=== PATIENT | female | born 1995 | race Caucasian/White ===

== ENCOUNTER 2017-11-06 22:20 | Emergency (ER) | payer OTHER ==
[~2017-11-06] VITALS: Ht 170.2 cm; Wt 76.7 kg
[~2017-11-06 22:20] MED LIST: ACET325 PO; Ayr Saline Na14.1 GM; SLOW FE142 MG; Verotin-Gr Cap1 EACH PO
[2017-11-06 23:32] LABS: Influenza A Negative (NEGATIVE); Influenza B Negative (NEGATIVE)
[2017-11-07] MEDS ORDERED: Tamiflu75 MG PO (00:01)
[2018-08-06] MEDS ORDERED: METO10 PO (17:09)
[2018-09-25] MEDS ORDERED: CEPH500 PO (15:09)
== END 2017-11-07 00:08 | disposition home or self-care (01) ==
LOC: ER 22:20
PROVIDERS: Physician Assistant
DX: B34.9 Viral infection, unspecified (principal); F17.210 Nicotine dependence, cigarettes, uncomplicated
CPT/HCPCS: 87804; 99283

== ENCOUNTER 2018-05-28 13:35 | Emergency (ER) | payer OTHER ==
[~2018-05-28] VITALS: Ht 170.2 cm; Wt 81.7 kg
[~2018-05-28 13:35] MED LIST changes: +Tamiflu75 MG PO
[2018-05-28 14:27] LABS: Source, Urine Clean Catch
[2018-05-28 14:31] LABS: Appearance, Urine Clear (Clear); Bilirubin, Urine Neg (Neg); Blood, Urine Neg (Neg); Color, Urine Yellow (P-Yellow); Glucose Qualitative, Urine Neg (Neg); Ketones, Urine Neg (Neg); Leukocyte Esterase, Urine 3+ (Neg); Nitrite, Urine Neg (Neg); Protein, Urine Neg (Neg); Urobilinogen, Urine NORM (Normal)
[2018-05-28 14:34] LABS: BASOPHILS ABSOLUTE AUTO 0.06 K/mm3 (0.00-0.23); BASOPHILS PERCENT AUTO 1 % (0-2); EOSINOPHILS PERCENT AUTO 3 % (0-6); Hematocrit 39.6 % (33.0-51.0); Hemoglobin 13.1 g/dL (11.5-16.0); IMMATURE GRAN ABSOLUTE AUTO 0.03 K/mm3 (0.00-0.10); IMMATURE GRAN PERCENT AUTO 0 % (0-1); LYMPHOCYTES ABSOLUTE AUTO 2.73 K/mm3 (0.84-5.20); LYMPHOCYTES PERCENT AUTO 23 % (21-46); MONOCYTES ABSOLUTE AUTO 0.63 K/mm3 (0.16-1.47); MONOCYTES PERCENT AUTO 5 % (4-13); Mean Corpuscular HGB 27.3 pg (26.0-34.0); Mean Corpuscular HGB Conc 33.1 g/dL (31.5-36.5); Mean Corpuscular Volume 83 fL (80-100); Mean Platelet Volume 10.1 fL (9.1-12.4); NEUTROPHILS ABSOLUTE AUTO 7.93 K/mm3 (1.96-9.15); NEUTROPHILS PERCENT AUTO 67 % (41-73); Platelet Count 364 K/mm3 (150-400); RDW Coefficient Variation 12.8 % (11.7-14.2); RDW Standard Deviation 38.7 fL (35.1-46.3); Red Blood Cell Count 4.79 M/mm3 (3.80-5.20); White Blood Cell Count 11.78 K/mm3 (4.00-11.30)
[2018-05-28 14:40] LABS: Bacteria Many /hpf; Red Blood Cells, Urine 0-2 /hpf (0-2); Squamous Epithelial Cells Few /hpf (Few)
[2018-05-28 15:07] LABS: Alanine Aminotransfer (ALT/SGP 34 U/L (12-78); Alk Phos 67 U/L (50-136); Anion Gap 8 mmol/L (6-16); Aspartate Aminotrans (AST/SGOT 20 U/L (12-37); Beta HCG, Quantitative, Serum 383 mIU/mL (0-3); Bilirubin, Total 0.2 mg/dL (0.1-1.0); Blood Urea Nitrogen 12 mg/dL (8-24); Bun/Creatinine Ratio 15.2 (12.0-20.0); CO2, Blood 24 mmol/L (21-32); Calcium, Blood 9.1 mg/dL (8.5-10.1); Chloride, Blood 106 mmol/L (98-108); Creatinine, Blood 0.79 mg/dL (0.40-1.00); Globulin, Blood 4.1 g/dL (2.2-4.0); Glomerular Filtration Rate >60 (60-); Glucose, Blood 98 mg/dL (70-99); Potassium, Blood 3.6 mmol/L (3.5-5.5); Sodium, Blood 138 mmol/L (136-145); Total Protein, Blood 8.1 g/dL (6.4-8.2)
[2018-05-28] MEDS ORDERED: Macrobid 100 M100 MG PO (16:16)
== END 2018-05-28 16:19 | disposition home or self-care (01) ==
LOC: ER 13:35
PROVIDERS: Emergency Medicine
DX: O20.0 Threatened abortion (principal); O23.41 Unspecified infection of urinary tract in pregnancy, first trimester; Z3A.01 Less than 8 weeks gestation of pregnancy
CPT/HCPCS: 36415; 80053; 81001; 84702; 85025; 86900; 86901; 87086; 99283

== ENCOUNTER 2018-05-30 09:59 | Emergency (ER) | payer OTHER ==
[~2018-05-30] VITALS: Ht 165.1 cm; Wt 81.7 kg
[~2018-05-30 09:59] MED LIST changes: +Macrobid 100 M100 MG PO
== END 2018-05-30 13:48 | disposition home or self-care (01) ==
LOC: ER 09:59
DX: O20.0 Threatened abortion (principal); O23.01 Infections of kidney in pregnancy, first trimester; N12 Tubulo-interstitial nephritis, not specified as acute or chronic; O99.331 Smoking (tobacco) complicating pregnancy, first trimester; F17.200 Nicotine dependence, unspecified, uncomplicated; Z3A.01 Less than 8 weeks gestation of pregnancy; Z79.899 Other long term (current) drug therapy
CPT/HCPCS: 76801; 76817; 81000; 84702; 84703; 99284-25

== ENCOUNTER → 2018-07-12 | Outpatient (CLI) | payer OTHER ==
[2018-07-15 02:17] LABS: CHLAMYDIA TRACHOMATIS, NAA Positive (Negative); HPV 16 Negative (Negative); HPV 18 Negative (Negative); HPV OTHER HR TYPES Negative (Negative); NEISSERIA GONORRHOEAE, NAA Negative (Negative)
== END | disposition home or self-care (01) ==
LOC: LAB 15:17 → LAB SHORT 15:17
PROVIDERS: Obstetrics & Gynecology
DX: Z36.89 Encounter for other specified antenatal screening (principal)
CPT/HCPCS: 87491; 87591; 87624; G0123

== ENCOUNTER → 2018-11-08 | Outpatient (CLI) | payer OTHER ==
[~2018-11-08] MED LIST changes: +CEPH500 PO; +METO10 PO
[2018-11-09 14:45] LABS: Candida species (DNA Probe) Negative (NEGATIVE); G. vaginalis (DNA Probe) Negative (NEGATIVE); T. vaginalis (DNA Probe) Negative (NEGATIVE)
== END | disposition home or self-care (01) ==
LOC: LAB SHORT 15:55 → LAB 15:55
PROVIDERS: Obstetrics & Gynecology
DX: O23.599 Infection of other part of genital tract in pregnancy, unspecified trimester (principal)
CPT/HCPCS: 87081; 87480; 87510; 87653; 87660

== ENCOUNTER → 2018-12-30 | Outpatient (CLI) | payer OTHER ==
[~2018-12-30] MED LIST changes: +EXPECTA PRENAT1 EACH
== END | disposition home or self-care (01) ==
LOC: LAB SHORT 14:42 → LAB 14:42
DX: Z34.83 Encounter for supervision of other normal pregnancy, third trimester (principal)
CPT/HCPCS: 87081; 87653

== ENCOUNTER 2019-01-05 10:05 | Observation (INO) | payer OTHER ==
[~2019-01-05] VITALS: Ht 170.2 cm; Wt 95.2 kg
[~2019-01-05 10:05] MED LIST changes: -EXPECTA PRENAT1 EACH
[2019-01-05] MEDS ORDERED: EXPECTA PRENAT1 EACH (10:35)
[2019-01-05 10:48] LABS: BASOPHILS ABSOLUTE AUTO 0.03 K/mm3 (0.00-0.23); BASOPHILS PERCENT AUTO 0 % (0-2); EOSINOPHILS ABSOLUTE AUTO 0.37 K/mm3 (0.00-0.68); EOSINOPHILS PERCENT AUTO 3 % (0-6); Hematocrit 31.3 % (33.0-51.0); Hemoglobin 9.9 g/dL (11.5-16.0); IMMATURE GRAN ABSOLUTE AUTO 0.12 K/mm3 (0.00-0.10); IMMATURE GRAN PERCENT AUTO 1 % (0-1); LYMPHOCYTES ABSOLUTE AUTO 2.14 K/mm3 (0.84-5.20); LYMPHOCYTES PERCENT AUTO 15 % (21-46); MONOCYTES ABSOLUTE AUTO 0.94 K/mm3 (0.16-1.47); MONOCYTES PERCENT AUTO 7 % (4-13); Mean Corpuscular HGB 25.6 pg (26.0-34.0); Mean Corpuscular HGB Conc 31.6 g/dL (31.5-36.5); Mean Corpuscular Volume 81 fL (80-100); Mean Platelet Volume 10.5 fL (9.1-12.4); NEUTROPHILS ABSOLUTE AUTO 10.52 K/mm3 (1.96-9.15); NEUTROPHILS PERCENT AUTO 75 % (41-73); Platelet Count 299 K/mm3 (150-400); RDW Coefficient Variation 13.7 % (11.7-14.2); RDW Standard Deviation 39.8 fL (35.1-46.3); Red Blood Cell Count 3.87 M/mm3 (3.80-5.20); White Blood Cell Count 14.12 K/mm3 (4.00-11.30)
[2019-01-05 10:56] LABS: Alanine Aminotransfer (ALT/SGP 17 U/L (12-78); Albumin, Blood 2.5 g/dL (3.4-5.0); Albumin/Globulin Ratio 0.6 (0.8-1.8); Alk Phos 138 U/L (50-136); Anion Gap 7 mmol/L (6-16); Aspartate Aminotrans (AST/SGOT 17 U/L (12-37); Bilirubin, Direct <0.1 mg/dL (0.0-0.3); Bilirubin, Indirect Unable to Calculate mg/dL (0.1-0.7); Bilirubin, Total 0.2 mg/dL (0.1-1.0); Blood Urea Nitrogen 6 mg/dL (8-24); Bun/Creatinine Ratio 15.4 (12.0-20.0); CO2, Blood 22 mmol/L (21-32); Calcium, Blood 8.4 mg/dL (8.5-10.1); Chloride, Blood 109 mmol/L (98-108); Creatinine, Blood 0.39 mg/dL (0.40-1.00); Globulin, Blood 4.5 g/dL (2.2-4.0); Glomerular Filtration Rate >60 (60-); Glucose, Blood 84 mg/dL (70-99); Potassium, Blood 3.8 mmol/L (3.5-5.5); Sodium, Blood 138 mmol/L (136-145); Uric Acid, Blood 4.1 mg/dL (2.6-6.0)
[2019-01-06 07:05] LABS: Creatinine Urine 35.9 mg/dL (27.00-270.00); Protein, Urine Quantitative 11.4 mg/dL (0.0-11.9)
== END 2019-01-06 09:30 | disposition home or self-care (01) ==
LOC: OBS 10:05 → BC 10:17
PROVIDERS: ADMIT Obstetrics & Gynecology
DX: O99.89 Other specified diseases and conditions complicating pregnancy, childbirth and the puerperium (principal); R51 Headache; Z3A.36 36 weeks gestation of pregnancy
CPT/HCPCS: 59025; 80053; 81050; 82248; 82570; 84156; 84550; 85025; G0378

== ENCOUNTER 2019-01-25 04:04 | Inpatient (IN) | payer OTHER ==
[~2019-01-25] VITALS: Ht 170.2 cm; Wt 0.2 kg
[~2019-01-25 04:04] MED LIST changes: +EXPECTA PRENAT1 EACH
[2019-01-25 04:37] LABS: BASOPHILS ABSOLUTE AUTO 0.04 K/mm3 (0.00-0.23); BASOPHILS PERCENT AUTO 0 % (0-2); EOSINOPHILS ABSOLUTE AUTO 0.35 K/mm3 (0.00-0.68); EOSINOPHILS PERCENT AUTO 3 % (0-6); Hematocrit 31.4 % (33.0-51.0); Hemoglobin 9.8 g/dL (11.5-16.0); IMMATURE GRAN PERCENT AUTO 1 % (0-1); LYMPHOCYTES ABSOLUTE AUTO 2.66 K/mm3 (0.84-5.20); LYMPHOCYTES PERCENT AUTO 20 % (21-46); MONOCYTES ABSOLUTE AUTO 0.99 K/mm3 (0.16-1.47); MONOCYTES PERCENT AUTO 8 % (4-13); Mean Corpuscular HGB 25.1 pg (26.0-34.0); Mean Corpuscular HGB Conc 31.2 g/dL (31.5-36.5); Mean Platelet Volume 10.3 fL (9.1-12.4); NEUTROPHILS ABSOLUTE AUTO 9.01 K/mm3 (1.96-9.15); NEUTROPHILS PERCENT AUTO 69 % (41-73); Platelet Count 235 K/mm3 (150-400); RDW Coefficient Variation 14.5 % (11.7-14.2); RDW Standard Deviation 41.8 fL (35.1-46.3); Red Blood Cell Count 3.91 M/mm3 (3.80-5.20); White Blood Cell Count 13.15 K/mm3 (4.00-11.30)
[2019-01-25 04:39] LABS: Mean Corpuscular Volume 80 fL (80-100)
--- NOTE | 2019-01-25 12:15 | NUR ---
ASSUMED CARE FROM NATA GOODE
--- NOTE | 2019-01-25 13:36 | NUR ---
baby is AGA, once cbg done 63
--- NOTE | 2019-01-25 14:16 | NUR ---
REPORT TO CHERI GOODE
[2019-01-26 06:06] LABS: Hematocrit 30.8 % (33.0-51.0); Hemoglobin 9.7 g/dL (11.5-16.0); Mean Corpuscular HGB 25.3 pg (26.0-34.0); Mean Corpuscular HGB Conc 31.5 g/dL (31.5-36.5); Mean Corpuscular Volume 80 fL (80-100); Mean Platelet Volume 10.4 fL (9.1-12.4); Platelet Count 215 K/mm3 (150-400); RDW Coefficient Variation 14.4 % (11.7-14.2); RDW Standard Deviation 41.5 fL (35.1-46.3); Red Blood Cell Count 3.83 M/mm3 (3.80-5.20); White Blood Cell Count 13.81 K/mm3 (4.00-11.30)
--- NOTE | 2019-01-26 07:15 | NUR ---
pt sleeping, didnt wake with noise in room, fob sleeping on day bed. baby sleeping in crib. can hear pt and so snoring
--- NOTE | 2019-01-26 07:53 | NUR ---
awake to feed baby to call rn when done so can do assessment, pt is feeding the baby in the dark, declines needing any light
--- NOTE | 2019-01-26 11:02 | NUR ---
DR NICE CALLED, PT MAY DC HOME, MAY TAKE OVER THE COUNTER TYLENOL AND MOTRIN DIRECTED ON THE BOTTLE FOR PAIN OR CRAMPING. TO CALL OFFICE TO MAKE AND APPOINTMENT, DR NICE TALKED TO THE PATIENT OVER THE PHONE
== END 2019-01-26 12:05 | disposition home or self-care (01) | DRG 807 ==
LOC: BC 04:04
PROVIDERS: ADMIT Obstetrics & Gynecology
PROC: 10E0XZZ Delivery of Products of Conception, External Approach (ICD-10-PCS; principal; 2019-01-25)
DX: O80 Encounter for full-term uncomplicated delivery (principal); Z37.0 Single live birth; Z3A.39 39 weeks gestation of pregnancy
CPT/HCPCS: 36415; 85025; 85027; J1885; J2590; J3010; J7120

== ENCOUNTER → 2020-09-17 | Outpatient (CLI) | payer OTHER ==
[~2020-09-17] MED LIST changes: +Adderall Xr 1515 MG PO; +MULVITA PO
[2020-09-18 10:41] LABS: G. vaginalis (DNA Probe) Negative (NEGATIVE); T. vaginalis (DNA Probe) Negative (NEGATIVE)
[2020-09-18 10:42] LABS: Candida species (DNA Probe) Negative (NEGATIVE)
[2020-09-20 02:11] LABS: CHLAMYDIA TRACHOMATIS, NAA Negative (Negative)
== END | disposition home or self-care (01) ==
LOC: LAB EV 15:24 → LAB SHORT 15:24
PROVIDERS: Advanced Practice Midwife
DX: Z11.3 Encounter for screening for infections with a predominantly sexual mode of transmission (principal); N76.0 Acute vaginitis
CPT/HCPCS: 87480; 87491; 87510; 87591; 87660

== ENCOUNTER 2021-04-11 09:36 | Day surgery (SDC) | payer OTHER ==
[~2021-04-11] VITALS: Ht 170.2 cm; Wt 81.9 kg
--- NOTE | 2021-04-11 10:00 | NUR ---
Ambulatory in Day Surgery History, Chart, Medications and Allergies reviewed before start of procedure. Lungs clear T/O to Auscultation. Patient confirms NPO status and agrees with scheduled surgery. Patient States Post-Procedure ride home has been arranged.
--- NOTE | 2021-04-11 10:19 | NUR ---
DR MACIAS AT BEDSIDE TO TALK WITH PATIENT. NEW ORDERS PER DR MACIAS TO GIVEN REGLAN 10MG IVP PRIOR TO SURGERY DUE TO PATIENT EATING 3 M&M'S THIS 7AM. PATIENT OK TO PROCEED WITH SURGERY. DR THOMPSON IS AWARE.
--- NOTE | 2021-04-11 11:11 | NUR ---
04/11/21 Elana Lopez NO PREOP ANTIBIOTICS ORDERED
--- NOTE | 2021-04-11 12:54 | NUR ---
Patient up to Ambulate independently. Gait steady. Discharge instructions reviewed with patient. Patient verbalizes understanding. Copy given to patient to take home. Discharged via wheelchair to private car for ride home WITH S/O.
== END 2021-04-11 12:54 | disposition home or self-care (01) ==
LOC: ORSCMMR 09:36 → ORD 11:15 → ORSCMMR 11:15
PROVIDERS: Obstetrics & Gynecology
PROC: 0U9LXZZ Drainage of Vestibular Gland, External Approach (ICD-10-PCS; principal; 2021-04-11 11:15)
DX: N75.0 Cyst of Bartholin's gland (principal)
CPT/HCPCS: A9270; J0171; J2250; J2370; J2704; J2765; J3010; J7120

== ENCOUNTER → 2022-11-30 | Outpatient (CLI) | payer OTHER | END | disposition home or self-care (01) | LOC: LAB SHORT 10:06 → LAB 10:06 | DX: N92.5 Other specified irregular menstruation (principal) | CPT/HCPCS: 84702 ==